=== PATIENT | male | born 1980 | race Caucasian/White ===

== ENCOUNTER → 2020-05-06 10:59 | Outpatient (POV) | payer OTHER, SELFPAY | PROVIDERS: Visit Provider Nurse Practitioner Family | DX: Z00.00 Encounter for general adult medical examination without abnormal findings (principal) ==

== ENCOUNTER 2020-05-17 15:00 | Outpatient (CLI) | payer BC, SELFPAY ==
[2020-05-17 15:09] VITALS: BP 125/78; PULSE 92; RESP 18; TEMP 36.6; O2SAT 98
[2020-05-17 15:35] VITALS: BP 130/78; PULSE 88; RESP 18
== END 2020-05-17 15:35 | disposition home or self-care (01) ==
LOC: INF 15:01
PROVIDERS: Visit Provider Nurse Practitioner Family
DX: K50.80 Crohn's disease of both small and large intestine without complications (principal); K58.0 Irritable bowel syndrome with diarrhea; K92.1 Melena; K62.5 Hemorrhage of anus and rectum; E74.31 Sucrase-isomaltase deficiency; D50.9 Iron deficiency anemia, unspecified; D17.30 Benign lipomatous neoplasm of skin and subcutaneous tissue of unspecified sites; K21.9 Gastro-esophageal reflux disease without esophagitis
CPT/HCPCS: 96365; Q0138

== ENCOUNTER → 2020-05-21 09:56 | Outpatient (CLI) | payer BC, SELFPAY ==
[2020-05-21 10:58] LABS: Basophils % 0.5 % (0.1-2.0); Eosinophils # 0.1 K/mm3 (0.0-0.4); Eosinophils % 1.3 % (0.1-12.0); Hematocrit 34.9 % (42.0-52.0); Hemoglobin 10.5 g/dL (14.1-18.0); Lymphocytes # 1.6 K/mm3 (0.7-4.5); Lymphocytes % 25.9 % (10-50); Mean Corpuscular HGB Conc 30.1 g/dL (31.8-35.4); Mean Corpuscular Hemoglobin 22.8 pg (27.0-31.2); Mean Corpuscular Volume 75.7 fl (80-94); Mean Platelet Volume 7.5 fl (7.4-10.4); Monocytes # 1.2 K/mm3 (0.1-1.0); Monocytes % 19.1 % (1.7-9.3); Neutrophils # 3.3 K/mm3 (1.8-7.8); Neutrophils % 53.3 % (37.0-80.0); Platelet Count 330 K/mm3 (142-424); Red Blood Count 4.61 M/mm3 (4.60-6.20); Red Cell Distribution Width 16.4 % (11.5-17.5); White Blood Count 6.1 K/mm3 (4.8-10.8)
[2020-05-21 12:28] LABS: Iron 277 ug/dL (49-181)
[2020-05-21 12:38] LABS: Total Iron Binding Capacity 431 ug/dL (261-462)
[2020-05-21 13:04] LABS: Ferritin 448 ng/ml (17.9-464)
== END ==
PROVIDERS: Visit Provider Nurse Practitioner Family
DX: K50.80 Crohn's disease of both small and large intestine without complications (principal); D50.9 Iron deficiency anemia, unspecified
CPT/HCPCS: 36415; 82728; 83540; 83550; 85025

== ENCOUNTER 2020-05-22 14:30 | Outpatient (CLI) | payer BC, SELFPAY ==
[2020-05-22 14:50] VITALS: BP 126/78; PULSE 86; RESP 20; TEMP 36.3; O2SAT 98
[2020-05-22 15:05] VITALS: BP 114/77; PULSE 81; RESP 18
== END 2020-05-22 15:15 | disposition home or self-care (01) ==
LOC: INF 14:32
PROVIDERS: Visit Provider Nurse Practitioner Family
DX: K50.80 Crohn's disease of both small and large intestine without complications (principal); K58.0 Irritable bowel syndrome with diarrhea; K92.1 Melena; K62.5 Hemorrhage of anus and rectum; D50.9 Iron deficiency anemia, unspecified; E74.31 Sucrase-isomaltase deficiency; K21.9 Gastro-esophageal reflux disease without esophagitis; D17.30 Benign lipomatous neoplasm of skin and subcutaneous tissue of unspecified sites
CPT/HCPCS: 96374; Q0138

== ENCOUNTER → 2020-05-28 11:02 | Outpatient (POV) | payer BC, SELFPAY | PROVIDERS: Visit Provider Dermatology | DX: Z00.00 Encounter for general adult medical examination without abnormal findings (principal) ==

== ENCOUNTER → 2020-05-29 10:44 | Outpatient (CLI) | payer BC, SELFPAY ==
[2020-05-29 12:19] LABS: Coronavirus 19 IgG Antibody Negative (Negative); Coronavirus 19 IgM Antibody Negative (Negative)
== END ==
PROVIDERS: Visit Provider Internal Medicine Gastroenterology
DX: Z01.818 Encounter for other preprocedural examination (principal); Z13.810 Encounter for screening for upper gastrointestinal disorder; Z12.11 Encounter for screening for malignant neoplasm of colon
CPT/HCPCS: 36415; 86328

== ENCOUNTER 2020-05-31 10:02 | Day surgery (SDC) | payer BC, SELFPAY ==
[2020-05-27 11:27] VITALS: BMI 27.7
[2020-05-31] VITALS (7 sets, daily range): BP systolic 99–153; BP diastolic 69–87; PULSE 70–104; RESP 16–20; TEMP 36.3; O2SAT 95–100
--- NOTE | 2020-05-31 11:14 | HMH.PROC ---
[facility] Procedure Note Procedure Note:: Upper Endoscopy Procedure Report: Esophagogastroduodenoscopy with cold biopsies and TTS balloon dilation Endoscopost: Go Pereyra II, MD Referring Physician: Maxwell Alonzo MD Date of Procedure: May 31, 2020 Equipment: Olympus GIF 180 standard upper endoscope Sedation: MAC sedation Indications: Mr. Huddleston is a 40-year-old gentleman with a long history of Crohn's ileitis. Over the last year he has had persistent iron deficiency. The patient has had a low ceruloplasmin and low serum copper level but his ophthalmic examination showed no [place] rings. The patient does report intermittent abdominal discomfort and dyspepsia. He also has a history of functional intestinal disorder with IBS and diarrhea. He does report chronic heartburn and reflux and he does take [id number] Zantac, Tums or Afsaneh-Merino to improve his symptoms. He did have a prior endoscopy with me more than a decade ago and had mild reflux esophagitis. He also has sucrase isomaltase deficiency. Procedure: Prior to the procedure, a history and physical exam was performed, and patient's medications and allergies were reviewed. The risks, benefits and alternatives of the sedation and procedure were discussed with the patient. All questions were answered and informed consent was obtained. The patient was brought to the procedure room. Patient identification and proposed procedure were verified by the physician and the nurse. The patient was placed in a left lateral decubitus position and the scope was passed under direct vision. Throughout the procedure, the patient's blood pressure, pulse, and oxygen saturations were monitored continuously. The upper GI endoscopy was accomplished without difficulty. The patient tolerated the procedure well. Findings: The scope was passed directly into the upper esophagus and advanced to the third portion of the duodenum. The post bulbar duodenum and duodenal bulb were normal with normal mucosa and conniventes. There was no evidence of scalloping or celiac disease. The scope was withdrawn through a normal duodenal bulb and pylorus into the stomach. There was moderate bile reflux with mild linear reactive gastropathy and mild chronic gastritis. The remainder of the antrum, body and fundus of the stomach were grossly normal. Upon retroflexion there was no hiatal hernia. 2 biopsies were taken in the antrum and along the lesser curvature for histology to rule out gastritis and/or H pylori. The scope was then withdrawn into the esophagus. There was a serrated Z-line but no evidence of reflux esophagitis. A biopsy was taken at the GE junction. There were tertiary contractions and mild esophageal dysmotility. The entire esophagus was dilated to 60 Spanish/20 mm with a TTS hydrostatic balloon. The remainder of the esophageal mucosa was normal. Impression: 1. Bile reflux with linear gastropathy and mild chronic gastritis 2. Nonerosive GERD (bile reflux) Plan: I will follow-up the biopsies. We will discuss additional treatment options. Will proceed with colonoscopy.
--- NOTE | 2020-05-31 11:20 | P.PN_ITS ---
[facility] Anesthesia Checklist - Patient Identification Patient Identification: Arm Band, Verbal (Name & ) - Structural Data Admitted From: Home Planned Operative Procedure/s: EGD/Colonoscopy Consent for Planned Operative Procedure(s) Verified: Yes Verified Documents: Surgical Consent, History and Physical - NPO Status Verified Time NPO: 00:00 - Chart Verification Results Verified: CBC, BMP - Additional verifications Anesthesia Reactions: No - Airway Assessment C-Spine Mobility Assessed: Yes TMJ Mobility Assessed: Yes Dentition: Good Dentition - Neurological Assessment Level of Consciousness: Awake, Alert, Appropriate, Follows Commands Hx Seizures: Yes (12-13 years ago) Numbness or tingling in extremities: No - Anesthesia Plan Anesthesia Risk discussed: Yes Anesthesia Plan: Verified ASA Class: II Anesthesia Type: MAC [facility] History I have reviewed the patient's past medical history: Yes Medical History: Reports:: Gastroesophageal Reflux Disease(GERD), Seizures Denies:: Cancer, Diabetes Mellitus Type 1, Diabetes Mellitus Type 2, Internal Pacemaker, MRSA *Have you ever received a pneumonia vaccine?: No *Have you received a flu vaccine this season?: No Other Medical History: Reports: Anemia, Hypothyroidism, Thyroid Disease Comment:: crohn's Anesthesia experience/problems:: None Laterality Cases: Bilateral: Tonsillectomy Other Surgeries: Yes: Cholecystectomy, Colonoscopy. No: Pacemaker Amputation: No Fractures: No - *Social History Smoking Status: Never smoker Alcohol Intake: never Substance Use Type: denies use *Occupational Status:: unemployed Housing: house Household Members: spouse *Travel in the last 8 weeks: None Family Hx:: Other (NA)
--- NOTE | 2020-05-31 11:33 | P.PCN_ITS ---
[facility] Procedure Note Procedure Note:: Colonoscopy Procedure Report: Colonoscopy with cold biopsies Endoscopist: oG Pereyra II, MD Referring physician: Maxwell Alonzo MD Date of Procedure: May 31, 2020 Equipment: Olympus 180 variable stiffness pediatric colonoscope Sedation: MAC sedation Indication: Mr. Huddleston is a 40-year-old gentleman with longstanding Crohn's disease. His last colonoscopy in February 2017 showed minimally active Crohn's ileitis. He also has had Crohn's colitis in the past. He was diagnosed more than 15 years ago. The patient does take Humira every other week (40 mg). He also is on Creon. The patient does report 4-5 mushy bowel movements daily with some intermittent rectal bleeding and some abdominal discomfort. He also has had iron deficiency with anemia. His hemoglobin was 9.4. He has been on Humira for about 12 years. He did stop azathioprine several months ago. Procedure: Prior to the procedure, a history and physical exam was performed, and patient's medications and allergies were reviewed. The risks, benefits and alternatives of the sedation and procedure were discussed with the patient. All questions were answered and informed consent was obtained. The patient was brought to the procedure room. Patient identification and proposed procedure were verified by the physician and the nurse. The patient was placed in a left lateral decubitus position and the scope was passed under direct vision. Throughout the procedure, the patient's blood pressure, pulse, and oxygen saturations were monitored continuously. The colonoscopy was accomplished without difficulty. The patient tolerated the procedure well. Findings: On digital rectal examination there was normal rectal tone. There were no external hemorrhoids. The colonoscope was introduced through the anal canal to the rectum and advanced to the cecum. The ileocecal valve and appendiceal orifice were identified. The scope was advanced approximately 10 to 15 cm into the ileum. There was maybe 1 tiny aphthous erosion that was biopsied but the ileum was grossly normal. The scope was then withdrawn into the colon. There was some loss of vascular pattern with very mild granularity to the colonic mucosa that was patchy. Biopsies were taken from the right and left colon. The findings were consistent with very mild low-grade chronic Crohn's ileitis. There were no pseudopolyps. Upon retroflexion within the rectum there were grade 1-2 internal hemorrhoids.The preparation was excellent throughout with [place] Preparation Score of 9. The cecal time was 12 minutes. Impression: 1. Mild low-grade Crohn's colitis without Crohn's ileitis 2. Grade 1-2 internal hemorrhoids Plan: I will discussed the findings with the patient and family. I will follow-up the biopsies.
== END 2020-05-31 12:30 | disposition home or self-care (01) ==
PROVIDERS: PCP Family Medicine; Visit Provider Internal Medicine Gastroenterology
PROC: 0DJ08ZZ Inspection of Upper Intestinal Tract, Via Natural or Artificial Opening Endoscopic (ICD-10-PCS; CPT 43235; principal; 2020-05-31 11:00)
DX: K50.80 Crohn's disease of both small and large intestine without complications (principal); Z79.899 Other long term (current) drug therapy; D50.9 Iron deficiency anemia, unspecified; K64.0 First degree hemorrhoids; K21.9 Gastro-esophageal reflux disease without esophagitis; K31.9 Disease of stomach and duodenum, unspecified; K29.50 Unspecified chronic gastritis without bleeding; Z80.0 Family history of malignant neoplasm of digestive organs
CPT/HCPCS: 45380; 43239; 43249; C1726

== ENCOUNTER → 2021-04-07 09:44 | Outpatient (POV) | payer BC, SELFPAY | PROVIDERS: Visit Provider Nurse Practitioner Family | DX: Z00.00 Encounter for general adult medical examination without abnormal findings (principal) ==

== ENCOUNTER → 2022-05-26 12:59 | Outpatient (CLI) | payer BC, SELFPAY ==
[2022-05-26 14:31] LABS: Basophils % 0.9 % (0.1-2.0); Eosinophils # 0.1 K/mm3 (0.0-0.4); Eosinophils % 1.7 % (0.1-12.0); Lymphocytes # 1.9 K/mm3 (0.7-4.5); Lymphocytes % 41.3 % (10-50); Mean Corpuscular HGB Conc 33.4 g/dL (31.8-35.4); Mean Corpuscular Hemoglobin 28.9 pg (27.0-31.2); Mean Corpuscular Volume 86.5 fl (80-94); Mean Platelet Volume 8.9 fl (7.4-10.4); Monocytes # 0.9 K/mm3 (0.1-1.0); Monocytes % 19.9 % (1.7-9.3); Neutrophils # 1.7 K/mm3 (1.8-7.8); Neutrophils % 36.1 % (37.0-80.0); Platelet Count 224 K/mm3 (142-424); Red Blood Count 4.85 M/mm3 (4.60-6.20); Red Cell Distribution Width 13.9 % (11.5-17.5); White Blood Count 4.7 K/mm3 (4.8-10.8)
[2022-05-26 15:19] LABS: Erythrocyte Sedimentation Rate 16 mm/hr (0-15)
[2022-05-26 15:36] LABS: Alanine Aminotransferase 29 U/L (12-78); Albumin Level 3.5 g/dl (3.5-5.0); Albumin/Globulin Ratio 1.3 (1.1-1.8); Alkaline Phosphatase 96 U/L (38-126); Anion Gap 12.6 mEq/L (5-15); Aspartate Amino Transferase 31 U/L (17-59); Bilirubin,Total 0.5 mg/dl (0.2-1.3); Blood Urea Nitrogen 15 mg/dl (9-20); Calcium 8.4 mg/dl (8.4-10.2); Carbon Dioxide 31 mmol/L (22.0-30.0); Chloride 100 mmol/L (98-107); Estimated Glomerular Filt Rate 105 ml/min (>60); GFR (African American) 127 ML/MIN (>60); Globulin 2.7 g/dL (1.3-3.2); Glucose 86 mg/dl (74-100); Potassium 3.6 mmoL/L (3.5-5.1); Sodium 140 mmol/L (136-145); Total Protein,Serum 6.2 g/dl (6.3-8.2)
[2022-05-26 15:54] LABS: 25-OH Vitamin D, Total 14.7 ng/mL (30-100)
[2022-05-26 16:08] LABS: Iron 50 ug/dL (49-181)
[2022-05-26 16:21] LABS: C-Reactive Protein 12.8 mg/L (0-4)
[2022-05-26 16:24] LABS: Total Iron Binding Capacity 353 ug/dL (261-462)
[2022-05-26 16:26] LABS: Vitamin B12 955 pg/mL (239-931)
[2022-05-28 20:46] LABS: QuantiFERON-TB Gold Plus Negative (Negative)
== END ==
PROVIDERS: PCP Family Medicine; Visit Provider Nurse Practitioner Family
DX: K50.80 Crohn's disease of both small and large intestine without complications (principal); K58.0 Irritable bowel syndrome with diarrhea; E74.31 Sucrase-isomaltase deficiency
CPT/HCPCS: 36415; 80053; 82306; 82607; 82728; 83540; 83550; 85025; 85651; 86140; 86480

== ENCOUNTER → 2022-05-29 15:05 | Outpatient (CLI) | payer BC, SELFPAY ==
[2022-05-29 15:16] LABS: Adenovirus F 40/41, stool Not Detected (NotDetected); Astrovirus Not Detected (NotDetected); Campylobacter Not Detected (NotDetected); Clostridium Difficile A/B, PCR Not Detected (NotDetected); Cryptosporidium Not Detected (NotDetected); Cyclospora Cayetanesis Not Detected (NotDetected); Entamoeba histolytica Not Detected (NotDetected); Enteroaggregative E coli Not Detected (NotDetected); Enteropathogenic E coli Not Detected (NotDetected); Enterotoxigenic E coli Not Detected (NotDetected); Giardia lamblia Not Detected (NotDetected); Norovirus Not Detected (NotDetected); Plesimonas Shigalloides, PCR Not Detected (NotDetected); Rotavirus A Not Detected (NotDetected); Salmonella, PCR Not Detected (NotDetected); Sapovirus Not Detected (NotDetected); Shiga-like toxin E coli Not Detected (NotDetected); Shigella Enterovasive E coli Not Detected (NotDetected); Vibrio Cholerae Not Detected (NotDetected); Vibrio, PCR Not Detected (NotDetected); Yersinia Entercolitica, PCR Not Detected (NotDetected)
[2022-06-03 22:39] LABS: Calprotectin, Fecal 1702 ug/g (0-120)
== END ==
LOC: LAB 15:10
PROVIDERS: PCP Family Medicine; Visit Provider Nurse Practitioner Family
DX: K50.80 Crohn's disease of both small and large intestine without complications (principal); K58.0 Irritable bowel syndrome with diarrhea; E74.31 Sucrase-isomaltase deficiency
CPT/HCPCS: 83993; 87507

== ENCOUNTER 2023-03-19 17:00 | Outpatient (RCR) | payer BC, SELFPAY | END 2023-03-19 17:05 | disposition home or self-care (01) | LOC: PT 17:00 | PROVIDERS: PCP Family Medicine; Visit Provider Student in an Organized Health Care Education/Training Program | DX: G57.73 Causalgia of bilateral lower limbs (principal); M79.671 Pain in right foot; M79.672 Pain in left foot; R60.0 Localized edema; G90.523 Complex regional pain syndrome I of lower limb, bilateral | CPT/HCPCS: 97163 ==